=== PATIENT | male | born 1965 | race American Indian/Alaskan Native ===

== ENCOUNTER 2016-12-24 07:03 | Emergency (ER) | payer SELFPAY ==
[2016-12-24 07:10] VITALS: BP 164/106
--- NOTE | 2016-12-24 07:42 | Emergency Department Report ---
ED Back Pain/Injury HPI - General Chief Complaint: Back Pain/Injury Stated Complaint: BACK PAIN Time Seen by Provider: 12/24/16 07:16 Source: patient Limitations: No Limitations - History of Present Illness Initial Comments: This is a 51-year old patient complaining or right lower back pain onset yesterday after cutting grass that radiating down his right leg and sensation to his right legs burning sensation. Denies any loss of bowel or bladder function but denies any fever, cough, chest pain, shortness of breath. Patient has a history of hypertension and asthma. He is noncompliant with his hypertension medication because he said he cannot afford it. Blood pressure is 164/106 and he does not have any headache, blurred vision. Patient is essentially asymptomatic with elevated blood pressure. He reports pain is 10 out of 10 to his lower back and report that he's had similar issues in the past with back pain. Denies any urinary burning, frequency or urgency. Denies any abdominal pain. Denies any drainage from his penis are concerned sexually transmitted disease. Patient does not have a primary care doctor.Pt reports that that he was in group home and they were given lisinopril and HCTZ but he was not able to afford follow-up so he hasn't taken his medication for while. MD Complaint: back pain, back injury Onset/Timin -: days(s) Similar Symptoms Previously: Yes Place: home Radiation: right leg Severity: severe Severity scale (0 -10): 10 Quality: burning Consistency: intermittent Improves With: immobilization Worsens With: movement, walking Associated Symptoms: denies: confusion, weakness, chest pain, numbness, difficulty walking, cough, difficulty urinating, diaphoresis, incontinence, fever/chills, constipation, headaches, abdominal pain, loss of appetite, malaise , nausea/vomiting, rash, seizure, shortness of breath, syncope - Related Data Previous Rx's Medication Instructions Recorded Last Taken Type Cyclobenzaprine [Flexeril] 10 mg PO TID PRN #15 tablet 12/24/16 Unknown Rx Hydrochlorothiazide [HCTZ] 25 mg PO QDAY #30 tablet 12/24/16 Unknown Rx Lisinopril [Zestril TAB] 20 mg PO QDAY #30 tablet 12/24/16 Unknown Rx traMADol [Ultram] 50 mg PO Q4HR PRN #15 tablet 12/24/16 Unknown Rx Allergies Allergy/AdvReac Type Severity Reaction Status Date / Time Penicillins Allergy Dizziness Verified 12/24/16 07:11 sulfamethoxazole Allergy Unknown Verified 12/24/16 07:11 [From Bactrim] trimethoprim [From Bactrim] Allergy Unknown Verified 12/24/16 07:11 ED Review of Systems ROS: Stated complaint: BACK PAIN Other details as noted in HPI Comment: All other systems reviewed and negative Constitutional: denies: chills, fever Eyes: denies: eye pain, vision change ENT: denies: ear pain, throat pain, hearing loss, epistaxis, congestion Respiratory: no symptoms reported Cardiovascular: denies: chest pain, palpitations, dyspnea on exertion, edema, syncope Gastrointestinal: abdominal pain. denies: nausea, vomiting, diarrhea, constipation, hematemesis, melena, hematochezia Genitourinary: denies: urgency, dysuria, frequency, hematuria, discharge, testicular pain, testicular mass Musculoskeletal: back pain, arthralgia. denies: joint swelling, myalgia Skin: denies: rash Neurological: denies: headache, weakness, numbness, paresthesias, confusion, abnormal gait, vertigo ED Past Medical Hx - Past Medical History Previous Medical History?: Yes Hx Hypertension: Yes Hx Asthma: Yes - Surgical History Past Surgical History?: No - Family History Family history: hypertension - Social History Smoking Status: Never Smoker Substance Use Type: Alcohol Other Social History: Patient is single but reported low socioeconomic status - Medications Home Medications: Home Medications Medication Instructions Recorded Confirmed Last Taken Type Cyclobenzaprine [Flexeril] 10 mg PO TID PRN #15 tablet 12/24/16 Unknown Rx Hydrochlorothiazide [HCTZ] 25 mg PO QDAY #30 tablet 12/24/16 Unknown Rx Lisinopril [Zestril TAB] 20 mg PO QDAY #30 tablet 12/24/16 Unknown Rx traMADol [Ultram] 50 mg PO Q4HR PRN #15 tablet 12/24/16 Unknown Rx ED Physical Exam - General Limitations: No Limitations General appearance: alert, in no apparent distress - Head Head exam: Present: atraumatic, normocephalic, normal inspection - Eye Eye exam: Present: normal appearance, PERRL, EOMI. Absent: nystagmus, periorbital swelling, periorbital tenderness Pupils: Present: normal accommodation - ENT ENT exam: Present: normal exam, normal orophraynx, mucous membranes moist, TM's normal bilaterally - Neck Neck exam: Present: normal inspection, full ROM. Absent: tenderness, meningismus, lymphadenopathy - Expanded Neck Exam Expanded Neck exam: Absent: tenderness, midline deformity, anterior neck swelling, tracheal deviation - Respiratory Respiratory exam: Present: normal lung sounds bilaterally. Absent: respiratory distress, wheezes, rales, rhonchi, stridor, chest wall tenderness - Cardiovascular Cardiovascular Exam: Present: regular rate, normal rhythm, normal heart sounds. Absent: S3, S4 - GI/Abdominal GI/Abdominal exam: Present: soft, normal bowel sounds. Absent: distended, tenderness, guarding, rebound, rigid - Extremities Exam Extremities exam: Present: normal inspection, full ROM, normal capillary refill. Absent: tenderness, pedal edema, joint swelling, calf tenderness - Back Exam Back exam: Present: normal inspection, full ROM. Absent: tenderness, CVA tenderness (R), CVA tenderness (L), muscle spasm, paraspinal tenderness, vertebral tenderness, rash noted - Expanded Back Exam Expanded Back exam: Absent: saddle anesthesia Back exam: Positive Straight Leg Raise: Left - Neurological Exam Neurological exam: Present: alert, oriented X3, reflexes normal. Absent: normal gait, motor sensory deficit - Expanded Neurological Exam Expanded Neurological exam: Absent: innattentive, memory loss-remote event, memory loss- recent event, ataxia, receptive aphasia, expressive aphasia, total aphasia, tremor, protecting the airway Patient oriented to: Present: person, place, time Speech: Present: fluid speech Cranial nerves: EOM's Intact: Normal, Gag Reflex: Normal, Tongue Deviation: Normal, Nystagmus: Normal, Facial Sensation: Normal Cerebellar function: Romberg: Normal Upper motor neuron: Pronator Drift: Normal, Sensory Extinction: Normal Sensory exam: Upper Extremity Light Touch: Normal, Upper Extremity Temperature: Normal, UE 2 Point Discrimination: Normal, Lower Extremity Light Touch: Normal, Lower Extremity Temperature: Normal, LE 2 Point Discrimination: Normal Motor strength exam: RUE: 5, LUE: 5, RLE: 5, LLE: 5 DTR: bicep (R): 2+, bicep (L): 2+, tricep (R): 2+, tricep (L): 2+, knee (R): 2+ , knee (L): 2+, ankle (R): 2+, ankle (L): 2+ Best Eye Response ([place]pan): (4) open spontaneously Best Motor Response ([place]): (6) obeys commands Best Verbal Response ([place]): (5) oriented Stepan Total: 15 - Psychiatric Psychiatric exam: Present: normal affect, normal mood - Skin Skin exam: Present: warm, dry, intact, normal color. Absent: rash ED Course Vital Signs 12/24/16 07:07 Temperature 97.9 F Pulse Rate 79 Respiratory 20 Rate Blood Pressure 164/106 O2 Sat by Pulse 100 Oximetry BP 146/100 - Reevaluation(s) Reevaluation #1: 12/24/16 11:20 BP 148/100 ED Medical Decision Making - Radiology Data Radiology results: report reviewed Thoracic spine x-ray revealed no acute findings The lumbar spine revealed mild degenerative disc disease. No acute findings - Medical Decision Making ED course: Patient status post injury to lower back with history of lower back pain. Physical plan and for lumbar strain, acute lower back pain. Patient reports that he was doing yard work and bent over and felt a pop in his back now complaining of right lower back pain or radiculopathy. Patient also with elevated blood pressure with a history of high blood pressure and does not take his blood pressure medication because he said that he does not have a primary care physician and cannot afford a primary care physician. He said when he was in group home he took lisinopril and HCTZ and I plan to start patient on this medication along with medication for back pain. I described the patient that he has a lower back strain and will need to rest for 3 days. I also described to him that his blood pressure was elevated and I'll restart his blood pressure medication. I discussed prescription good Rx card and will be given him a card for him to be able to get his medication. He was given Toradol 60 mg IM and Decadron 10 mg IM with positive relief of back pain. Critical care attestation.: If time is entered above; I have spent that time in minutes in the direct care of this critically ill patient, excluding procedure time. ED Disposition Clinical Impression: Acute exacerbation of chronic low back pain, Lumbar radiculopathy, right, Elevated systolic blood pressure reading with diagnosis of hypertension Lumbar strain Qualifiers: Encounter type: initial encounter Qualified Code(s): S39.012A - Strain of muscle, fascia and tendon of lower back, initial encounter Disposition: DC-01 TO HOME OR SELFCARE Is pt being admited?: No Does the pt Need Aspirin: No Condition: Stable Instructions: Hypertension (ED), Muscle Strain (ED), Low Back Strain (ED), Core Strengthening Exercises (GEN), Acute Low Back Pain (ED), DASH Eating Plan ( ED) Additional Instructions: Please rest for 72 hours Follow-up with Dr. Barba orthopedic doctor in 2 days Follow-up at [facility] for management of chronic back pain and hypertension Please take medication as prescribed Flexeril causes drowsiness so please do not drive or operate heavy machinery while taking this medication Please use drugs Rx'd card to fill your prescription and your blood pressure medication that is prescribed R free at [facility] Prescriptions: Cyclobenzaprine [Flexeril] 10 mg PO TID PRN #15 tablet PRN Reason: Muscle Spasm Hydrochlorothiazide [HCTZ] 25 mg PO QDAY #30 tablet Lisinopril [Zestril TAB] 20 mg PO QDAY #30 tablet traMADol [Ultram] 50 mg PO Q4HR PRN #15 tablet PRN Reason: Pain Referrals: [facility] [Outside] - 3-5 Days JUNIE BARBA MD [Staff Physician] - 3-5 Days Forms: Work/School Release Form(ED)
[2016-12-24] MEDS ORDERED: DECADRON IM ONE (07:43)
[2016-12-24] MEDS ORDERED: TORADOL IM ONE (07:43)
--- NOTE | 2016-12-24 09:25 | Cat Scan Report ---
CT LUMBAR SPINE WITHOUT CONTRAST INDICATION: Injury with back pain. COMPARISON: None similar. FINDINGS: Noncontrast axial, sagittal and coronal CT reconstructions through the lumbar spine demonstrate normal vertebral body stature and alignment. Mild degenerative spurring, greatest along L4 superior endplate. Slight L3-L4 and L4-L5 disc narrowing not excluded. Normal remainder disc heights. Mild diffuse disc bulge at L4-L5 also suspected, more so central to left paracentral with slight ventral thecal sac indentation. AP thecal sac of approximately 1.2 cm, axial image 378, series 2. Approximately 1.1 cm benign lucency along iliac aspect of the right SI joint also seen, axial image 412. CONCLUSION: No acute lumbar spine CT abnormality with mild degenerative changes, greatest at L4-L5, as described. Please correlate. Thank you for the opportunity to participate in this patient's care.
--- NOTE | 2016-12-24 09:37 | Cat Scan Report ---
CT THORACIC SPINE WITHOUT CONTRAST INDICATION: Injury with back pain. COMPARISON: None similar at this institution. FINDINGS: Noncontrast axial, sagittal and coronal CT reconstructions through the thoracic spine demonstrate normal vertebral body stature, alignment and disc heights. Slight upper thoracic and few lower thoracic spine degenerative changes as spurring and endplate irregularities/Schmorl's nodes incidentally noted. No large disc protrusion identified, to the extent assessed. No abnormal paraspinal density. Clear imaged lungs. Patent airway. CONCLUSION: No acute thoracic spine CT abnormality, as described. Thank you for the opportunity to participate in this patient's care.
== END 2016-12-24 11:43 | disposition home or self-care (01) ==
LOC: ED 07:03
DX: S39.012A Strain of muscle, fascia and tendon of lower back, initial encounter (principal); M54.16 Radiculopathy, lumbar region; I10 Essential (primary) hypertension; J45.909 Unspecified asthma, uncomplicated; Z88.0 Allergy status to penicillin; Z88.8 Allergy status to other drugs, medicaments and biological substances; X58.XXXA Exposure to other specified factors, initial encounter; Y93.89 Activity, other specified; Y99.8 Other external cause status; Y92.89 Other specified places as the place of occurrence of the external cause
CPT/HCPCS: 72128; 72131; 96372; 99283; J1100; J1885